=== PATIENT | male | born 1995 | race African-American/Black ===

== ENCOUNTER → 2022-02-17 | Outpatient (CLI) | payer OTHER ==
--- NOTE | 2022-02-17 12:22 | Diagnostic Imaging Report ---
PROCEDURE: MR imaging cervical spine without contrast. TECHNIQUE: Multiplanar, multisequence MR imaging of the cervical spine was performed without contrast. INDICATION: Old spinal injury from football, upper extremity tingling. COMPARISON: I have no priors for relevant comparison. FINDINGS: The cervical spinal cord itself has a normal volume and normal morphology and a normal signal intensity. No paravertebral mass, hemorrhage or fluid collection. Cervical vertebral statures. Their alignment and their marrow signal intensity normal. Ligamentous structures intact. No cord compression. No substantial canal stenosis. At C4-C5, there is mild left foraminal narrowing. At C5-C6, there is mild right and [id number] left foraminal stenosis. Foramen at the remaining levels all widely patent. IMPRESSION: Mild mid cervical foraminal stenoses with normal spinal cord, normal alignment, no acute bony pathology or epidural pathology. Dictated by: Dictated on workstation # [id number]
== END ==
LOC: RAD 08:48
PROVIDERS: ATTEND Nurse Practitioner Family
DX: M48.02 Spinal stenosis, cervical region (principal); Z87.828 Personal history of other (healed) physical injury and trauma
CPT/HCPCS: 72141